=== PATIENT | male | born 1950 | race Caucasian/White ===

== ENCOUNTER 2019-05-28 10:34 | Emergency (ER) | payer MEDICARE, OTHER, SELFPAY ==
--- NOTE | 2019-05-28 10:39 | ED.GENADUL_ITS ---
Discharge Plan Disposition Patient Disposition: HOME Condition: Good Discharge Details Chief Complaint: Nk/Back Pain Clinical Impression: Lumbago Primary Care Provider: Lou,Local ED Provider: Keith Vargas Home Meds and New Rx's Prescriptions: New prednisone 50 MG tablet 50 mg PO DAILY Qty: 5 RF: 0 lidocaine [Lidoderm] 1 PATCH patch 1 patch Topical Q24H Qty: 4 RF: 0 cyclobenzaprine 10 mg tablet 10 mg PO TID Qty: 14 RF: 0 Discharge Instructions Instructions: Low Back Strain (ED) Additional Instructions: At this time you show signs and symptoms consistent with a muscle strain in your back. Please use the Lidoderm patch as directed. Please take 800 mg of ibuprofen every 6 hours and 1000 mg of Tylenol every 6 hours. Please use a heating pad as often as possible on your back. Please take the Flexeril/muscle relaxant as directed. I would also recommend taking prednisone the steroid to help reduce significant inflammation throughout. If you notice any worsening of your symptoms, or any new symptoms such as numbness or tingling in your groin, loss of control for your bowels or bladder vomiting, diarrhea, fever, chills, shortness of breath, chest pain, numbness, weakness, or fainting , please return immediately to the emergency department for reevaluation. Please follow up with your primary care provider as soon as possible for reassessment and reevaluation. As always, it was a pleasure participating in your medical care today. Medical Decision Making This is a very pleasant 69-year-old male who presents today for evaluation of low back pain. Pain began yesterday while he was bending over, and is gradually worsened with time. He describes it as consistent with his previous back strains. Exam demonstrates no concerning red flags of saddle anesthesia, decreased rectal tone, bowel or bladder incontinence, no historical red flags of IV drug use, trauma, or fever. Signs and symptoms are clinically inconsistent with cauda equina syndrome at this time, and clinically consistent with mild lumbar go for muscle strain. No clinical indication for emergent imaging at this time. We will give Lidoderm patch, recommend continued Flexeril, NSAIDs, and prednisone. We discussed red flags which to return the importance of close follow-up and heating pad. I have extensively reviewed the treatment plan and discharge instructions with the patient. I have addressed all patient concerns at this time. The patient was made aware of what symptoms to monitor for that would warrant a return to the emergency department. Discussed the plan with the patient, they demonstrate verbal understanding and agreement with our assessment and plan at this time. HPI General Date/Time Provider Initiated Documentation: 05/28/19 10:37 . HPI Narrative: This is a 69-year-old male with no significant past medical history who presents today for evaluation of back pain. Patient states that he is thrown his back out in the past, and this feels similar to this. He is visiting from [place] currently. Patient states that yesterday he was bending over, not picking up or lifting anything heavy, when he felt a mild ache in his back, this gradually worsened throughout the day, it encompasses both sides of his lower back, but nothing in the middle. He denies any new numbness tingling or weakness in his legs. He denies any saddle anesthesia or bowel or bladder incontinence. He denies any red flags of IV or illicit drug use, fall, or trauma. He denies any previous back surgeries. He denies any other complaints modifying factors at this time. He does have a few old Vicodin and cyclobenzaprine at home, he did take 1 of each of these it did not completely relieve his symptoms. He denies any other complaints or red flags at this time peer Related Data Home Medications Medication Instructions Recorded Confirmed cyclobenzaprine 10 mg PO TID #14 tab 05/28/19 lidocaine [Lidoderm] 1 patch TOPICAL Q24H #4 patch 05/28/19 prednisone 50 mg PO DAILY #5 tab 05/28/19 Previous Rx's Medication Instructions Recorded cyclobenzaprine 10 mg PO TID #14 tab 05/28/19 lidocaine [Lidoderm] 1 patch TOPICAL Q24H #4 patch 05/28/19 prednisone 50 mg PO DAILY #5 tab 05/28/19 Review of Systems Review of Systems All systems reviewed & are unremarkable except as noted in HPI and below PFSH Social History Smoking/Tobacco Use Status: Never Alcohol Intake: current Alcohol Intake frequency: 0-2 drinks per day Drug use: Never Do you feel safe at home: Yes Do you feel safe in your relationship?: Yes Exam Narrative Exam Narrative: 1.Const: Well-nourished, Well-developed, appearing stated age 2.Eyes: PERRL, no conjunctival injection, and symmetrical lids. 3.ENT: Atraumatic external nose and ears. Moist MM. Neck: Symmetric, trachea midline, No thyromegaly. 4.CVS: +S1/S2, No murmurs or gallops. Peripheral pulses 2+ and equal in all extremities. Brisk capillary refill in all extremities. 5.RESP: Unlabored respiratory effort. Clear to auscultation bilaterally. No wheezes rales or rhonchi 6.GI: Soft, Nontender/Nondistended, No hepatosplenomegaly. No guarding or rebound. 7.MSK: Normocephalic/Atraumatic, Extremities w/o deformity or ttp No cyanosis or clubbing, Normal movement of all extremities. No midline tenderness to palpation over the CTLS spine. Mild paraspinal tenderness over the lower lumbar area bilaterally. negative straight leg raise. Normal ROM in flexion, extension, side bend, and rotation. Patient has +5 out of 5 strength in the lower extremities in dorsiflexion and plantarflexion, knee flexion and extension, hip flexion and extension. There is +2 over 2 dorsalis pedis pulses bilaterally. There is normal sensation to the skin with light touch at the foot, knee, and hip. Normal saddle sensation. Good sensation over the deep sural nerve area bilaterally. Rectal exam deferred. Reflexes are +2 over 4 in the patellar reflex bilaterally. +5 out of 5 strength in the medial, ulnar, radial nerve distribution bilaterally in the hands as well as intact light touch sensation to these dermatomes on the hands 8.Skin: Warm, Dry. No rashes or lesions. 9.Neuro: campus administrator II-XII grossly intact. Sensation grossly intact, no focal neurologic deficits. 10.Psych: (AAO) x3. Appropriate mood and affect
[2019-05-28 10:46] VITALS: BP 157/89; PULSE 92; RESP 16; TEMP 36.6; O2SAT 100
[2019-05-28] MEDS: Lidocaine 5% Patch 1 PATCH TP (10:57)
== END 2019-05-28 11:34 | disposition home or self-care (01) ==
LOC: ER 11:30
PROVIDERS: Emergency Provider Student in an Organized Health Care Education/Training Program; PCP Family Medicine
DX: M54.5 Low back pain (principal)
CPT/HCPCS: 99283